=== PATIENT | female | born 1960 | race Caucasian/White ===

== ENCOUNTER 2021-05-30 13:00 | Day surgery (SDC) | payer OTHER | END 2021-05-30 16:10 | disposition home or self-care (01) | LOC: AMB-ENDOS 13:00 | PROVIDERS: ATTEND Colon & Rectal Surgery | DX: K57.32 Diverticulitis of large intestine without perforation or abscess without bleeding (principal); K64.0 First degree hemorrhoids; Z20.822 Contact with and (suspected) exposure to COVID-19 ==

== ENCOUNTER 2022-06-18 11:45 | Inpatient (IN) | payer OTHER ==
[~2022-06-18] VITALS: Ht 157.5 cm; Wt 54.4 kg
[2022-06-18] MEDS ORDERED: COZAAR50 MG PO (13:52)
[2022-06-18] MEDS ORDERED: ATORVASTATIN CA40 MG PO (13:53)
[2022-06-18] MEDS ORDERED: CATAFLAN PO (13:54)
[2022-06-18] MEDS ORDERED: SOMA250 MG PO (13:54)
[2022-06-18] MEDS ORDERED: SINGULAIR10 MG PO (13:54)
[2022-06-18] MEDS ORDERED: PROTONIX40 M1 PO (13:55)
[2022-06-18] MEDS ORDERED: PROTON PO (13:55)
[2022-06-18] MEDS ORDERED: FLONASE16 GM IH (13:56)
[2022-06-23] MEDS ORDERED: FAMOTIDINE20 MG (08:49)
[2022-06-23] MEDS ORDERED: BUSPIRONE HCL15 MG (08:49)
[2022-06-23] MEDS ORDERED: MYCOPHENOLATE500 MG (08:49)
[2022-06-23] MEDS ORDERED: VITAMIN D3250 MCG (08:49)
[2022-06-23] MEDS ORDERED: DICLOFENAC POTA50 MG PO (09:01)
== END 2022-06-25 14:33 | disposition home or self-care (01) | DRG 331 ==
LOC: O/R 06-23 05:20 → OB/GYN 06-23 05:20 → SURH 06-23 11:45 → OB/GYN 06-23 18:58
PROVIDERS: ADMIT Colon & Rectal Surgery; ATTEND Colon & Rectal Surgery
PROC: 0DBP4ZZ Excision of Rectum, Percutaneous Endoscopic Approach (ICD-10-PCS; 2022-06-23)
PROC: 0DJD8ZZ Inspection of Lower Intestinal Tract, Via Natural or Artificial Opening Endoscopic (ICD-10-PCS; 2022-06-23)
PROC: 0DTN4ZZ Resection of Sigmoid Colon, Percutaneous Endoscopic Approach (ICD-10-PCS; principal; 2022-06-23 14:00)
DX: K57.30 Diverticulosis of large intestine without perforation or abscess without bleeding (principal); Z20.822 Contact with and (suspected) exposure to COVID-19